=== PATIENT | female | born 1950 | race Caucasian/White ===

== ENCOUNTER 2019-09-04 22:59 | Inpatient (IN) | payer OTHER ==
[~2019-09-04] VITALS: Ht 160 cm; Wt 90.7 kg
[~2019-09-04 22:59] MED LIST: PROVENTIL0.5 ML/2.5
[2019-09-04] MEDS ORDERED: TENORMIN50 M1 (23:21)
--- NOTE | 2019-09-04 23:22 | NUR ---
SE RECIBE PACIENTE ALERTA Y ORIENTADA X3 CON LA QUEJA PRINCPAL DE DISNEA, ESCALOFRIO Y TOS PRODUCTIVA DESDE HACE YI SEMANA.
--- NOTE | 2019-09-04 23:30 | NUR ---
PACIENTE ORIENTADO SOBRE EL TX. SE EXTRAEN MUESTRAS DE [place] BAJO MEDIDAS ASEPTICAS SE ROTULAN Y ENVIAN AL LABORATORIO SE CANALIZA Y ADMINISTRAN MEDICAMENTOS STEFAN ORDEN MEDICA. TERAPIAS NOTIFICADAS A MR. MARRERO
--- NOTE | 2019-09-05 07:08 | NUR ---
SE RECIBE PTE FEMENINA ALERTA Y ORIENTADA EN [place] ESFERAS, ASISTIDA RESPIRATORIAMENTE CON CANULA NASAL A 3LT/MIN Y NO REFIERE DOLOR AL MOMENTO. VENOPUNCION PATENTE JAZMYN DE EDEMA Y ERITEMA EN H/L. PTE EN CAMA BAJA CON BARANDAS ELEVADAS Y TIMBRE ACCESIBLE. PENDIENTE CONSULTA CON DR. RIGGINS GRESHAM YA NOTIFICADA. SE MANTIENE PTE BAJO OBSERVACION POR CAMBIOS SIGNIFICATIVOS.
--- NOTE | 2019-09-05 08:49 | NUR ---
MRS. VAN KELLEY PTE A MANTENER MASCARRILLA COLOCADA, REFIERE COMPRENDER.
[2019-09-11] MEDS ORDERED: XOPENEX0.63 MG/3 IH (10:00)
[2019-09-11] MEDS ORDERED: MEDROLPACK PO (10:00)
[2019-09-11] MEDS ORDERED: XOPENEX HFA15 GM IH (10:01)
[2019-09-11] MEDS ORDERED: NIFEDIPINE ER30 M1 PO (10:29)
== END 2019-09-11 11:42 | disposition home or self-care (01) | DRG 202 ==
LOC: ER 22:59 → SEC-K 09-05 13:20 → MEDI 09-05 15:59 → MEDJ 09-08 13:22 → MEDI 09-08 23:10
PROVIDERS: ADMIT Internal Medicine
PROC: 8E0ZXY6 Isolation (ICD-10-PCS; principal; 2019-09-05)
PROC: 3E0F7GC Introduction of Other Therapeutic Substance into Respiratory Tract, Via Natural or Artificial Opening (ICD-10-PCS; 2019-09-05)
DX: J45.41 Moderate persistent asthma with (acute) exacerbation (principal); J15.7 Pneumonia due to Mycoplasma pneumoniae; E66.01 Morbid (severe) obesity due to excess calories; I10 Essential (primary) hypertension